=== PATIENT | female | born 1965 | race Caucasian/White ===

== ENCOUNTER → 2018-11-26 | Outpatient (CLI) | payer MEDICARE ==
[2018-11-26 13:26] LABS: HCT 40.9 % (34.0-46.0); HGB 13.5 gm/dL (11.4-16.0); MCH 30.9 pg (25.0-35.0); MCHC 33.1 g/dL (31.0-37.0); MCV 93.4 fL (80.0-100.0); Mean Platelet Volume 6.8; Platelet Count 301 k/uL (150-450); RBC 4.38 m/uL (3.80-5.40); RDW 12.7 % (11.5-15.5); WBC 9.7 k/uL (3.8-10.6)
[2018-11-26 13:37] LABS: Potassium 4.2 mmol/L (3.5-5.1)
== END ==
LOC: LABWHC1 12:51
PROVIDERS: ATTEND Internal Medicine Interventional Cardiology
DX: Z01.812 Encounter for preprocedural laboratory examination (principal); I34.0 Nonrheumatic mitral (valve) insufficiency
CPT/HCPCS: 36415; 80051; 82565; 84520; 85027

== ENCOUNTER → 2018-12-06 | Day surgery (SDC) | payer MEDICARE ==
[2018-12-04 10:54] VITALS: BMI 23.6
[~2018-12-06] MED LIST: ALPRAZolam 0.25 MG TAB PO PRN; ALPRAZolam 0.5 MG TAB PO PRN; ATORVASTATIN 80 MG TAB PO STA; BENZOCAINE SPRAY 1 CAN MUCOUS MEM ONE; HEPARIN SODIUM 1,000 UN/ML (10ML VL) ONE; HYDROmorphone 1 MG/ML 1 ML SYRINGE ONE; LIDOCAINE 1% INJ 10MG/ML (20 ML MDV) ONE; LIDOCAINE 1% INJ 10MG/ML (20 ML MDV) SQ ONE; MORPHINE SULFATE (PF) 1 MG/ML AMP IV ONE; NITROGLYCERIN 1000MCG/10ML SYRINGE INTRACORON ONE; NITROGLYCERIN SL TABS 0.4 MG TAB SUBLINGUAL PRN; RX INFO: IV CONTRAST WAS GIVEN 1 EACH MISC MISCELLANE PRN; SODIUM CHLORIDE 0.9% 1,000 ML IV SCH; SODIUM CHLORIDE 0.9% 1,000 ML in EMPTY BAG 1 BAG IV ONE; VERAPAMIL 2.5 MG/ML 2 ML AMP ONE; fentaNYL (PF) 50 MCG/ML 2 ML AMP ONE
[2018-12-06 09:44] VITALS: TEMP 97.9
[2018-12-06] MEDS: MIDAZOLAM (PF) 2 MG/2 ML VIAL IV ONE ×2 (11:08→11:36)
[2018-12-06] MEDS: fentaNYL (PF) 50 MCG/ML 2 ML AMP IV ONE ×2 (11:08→11:09)
[2018-12-06] MEDS: VERAPAMIL SYRINGE (5 MG/10 ML) INTRAARTER ONE ×2 (11:45→12:03)
--- NOTE | 2018-12-06 12:46 | ECHOT ---
TRANSESOPHAGEAL ECHOCARDIOGRAM DATE OF SERVICE: December 06, 2018 PERFORMING PHYSICIAN: Orlando Doe MD, power builder developer. PROCEDURE PERFORMED: Transesophageal echocardiogram. INDICATION: Mitral regurgitation. COMPLICATION: None. LEVEL OF SEDATION: Moderate with sedation length of 10 minutes. PROCEDURE DESCRIPTION: After obtaining an informed consent, explaining the procedure, benefits, risks, complications and alternatives, the patient was brought to the transesophageal echocardiogram suite. A pulse oximetry and heart rate monitors were attached to the patient prior to the procedure. The patient's throat was sprayed using lidocaine locally. Following that, the patient was turned into left lateral position. A bite guard was placed and the patient was then sedated with the above doses of Versed and fentanyl in divided doses. Following that, the transesophageal echocardiogram probe was advanced through the bite guard into the mid esophagus where 2-D echocardiogram images as well as color Doppler images of various cardiac structures were obtained. We evaluated the interatrial septum using 2-D echocardiogram, color Doppler, and contrast study. The procedure was completed. There were no complications. FINDINGS: The left ventricular dimension and systolic function appeared to be within normal limits. The ejection fraction appeared to be in the range of 55% to 60%. The right ventricle appeared to be of normal size and function. The left atrium appeared to be mildly dilated. The left atrial appendage appeared to be free from any thrombus. The aortic valve appeared to be trileaflet valve without stenosis with mild regurgitation. The mitral valve seems to be thickened with moderate MR. There was normal tricuspid valve and pulmonic valve. The interatrial septum appeared to be intact without any evidence of shunt. CONCLUSION: 1. Normal left ventricular dimension and systolic function. 2. Normal right ventricular dimension and systolic function. 3. Mild biatrial enlargement. 4. Normal left atrial appendage. 5. Intact interatrial septum. 6. Trileaflet aortic valve without stenosis with trace insufficiency. 7. Thickened mitral valve leaflets with moderate mitral regurgitation. 8. Normal tricuspid valve and pulmonic valve. 9. Normal aortic root dimension. 10.No evidence of pericardial effusion. MMODL / IJN: [id number] /
--- NOTE | 2018-12-06 13:51 | CC ---
CARDIAC CATHETERIZATION REPORT DATE OF SERVICE: 12/06/2018 PERFORMING PHYSICIAN: Orlando Doe MD, white sugar pan tank operator. PROCEDURE PERFORMED: 1. Selective right and left coronary angiogram. 2. Left heart catheterization. INDICATION: This is a 53-year-old female patient with history of asthma who continues to have chest discomfort sometimes exertional and sometimes not. She underwent a stress test in March of 2018 and that came in to be unremarkable for ischemia. Because she continues to have chest discomfort, I advised proceeding with coronary angiogram. APPROACH: Right radial artery. COMPLICATION: None. LEVEL OF SEDATION: Moderate with sedation length of 27 minutes. PROCEDURE DESCRIPTION: After obtaining an informed consent, the patient was brought to the cardiac laborer laboratory. The right radial artery was cannulated using micropuncture technique. Then I placed a 5- Setswana sheath in the right radial artery. After that I did give the patient 2 mg of verapamil IA and 6,000 units of heparin IV. Selective right and left coronary angiogram performed using JR3.5 and JL3 catheters. Left heart catheterization was performed using the JR3.5, which crossed the aortic valve then I did pullback across aortic valve after the catheter was flushed. The procedure was completed without any complication. SELECTIVE CORONARY ANGIOGRAM: 1. The right coronary artery has mild disease in the midportion appeared to be in the range of 20%. Distally bifurcates into PDA and PLV branches, both appeared to be angiographically normal. 2. The left main is angiographically normal. It bifurcates into left circumflex and left anterior descending artery. 3. Left circumflex is a large caliber vessel. It is a nondominant vessel. The proximal circumflex is angiographically normal and gives rise into a large OM branch which bifurcates distally into 2 branches both appear to be angiographically normal. The circumflex continued after that as a moderate caliber vessel in the AV groove. 4. The LAD: The proximal LAD appeared to be angiographically normal. It gives rise into the first diagonal branch which seems to be angiographically normal. The mid LAD just after the bifurcation of second diagonal branch has a lesion appeared to be in the range of 60% to 70%. The LAD distally appeared to be angiographically normal. HEMODYNAMICS: The left ventricular end-diastolic pressure was about 12 mmHg without significant gradient across the aortic valve. CONCLUSION: 1. Mild disease involving the right coronary artery. 2. Intermediate to severe disease involving the mid LAD with a lesion appeared to be in the range of 60% to 70%. POSTPROCEDURE MANAGEMENT: 1. Giving the above anatomy, I did recommend maximized medical treatment at this point of time. 2. I am going to start the patient on oral nitrate. 3. Obtain a stress test as an outpatient to assess for ischemia in the LAD territory. 4. Follow up with the patient. KANE / ARIN: [id number] /
--- NOTE | 2018-12-06 15:27 | LTR ---
December 06, 2018 To: Dr. Hogan Re: Courtney Preciado (69) Dear Dr. Hogan, Ms. Courtney Preciado underwent today a heart catheterization that revealed intermediate to severe disease involving the mid LAD. Given the absence of any critical disease, I did recommend maximized medical treatment and starting the patient on oral nitrates. I want to thank you for allowing us to participate in her care, and please do not hesitate to call if you have any question or concern. Sincerely, Orlando Doe M.D. KANE / MONA: [id number] /
[2018-12-06 17:07] VITALS: RESP 16
[2018-12-06 17:08] VITALS: BP 100/57; PULSE 66
== END | disposition home or self-care (01) ==
LOC: CATHCVL 09:20
PROVIDERS: ATTEND Internal Medicine Interventional Cardiology
DX: I34.0 Nonrheumatic mitral (valve) insufficiency (principal); I25.110 Atherosclerotic heart disease of native coronary artery with unstable angina pectoris; E78.5 Hyperlipidemia, unspecified; J45.909 Unspecified asthma, uncomplicated; Z79.899 Other long term (current) drug therapy; Z88.5 Allergy status to narcotic agent; Z88.2 Allergy status to sulfonamides; Z82.49 Family history of ischemic heart disease and other diseases of the circulatory system
CPT/HCPCS: 93312; 93320; 93325; 93458; 81025; C1887; C1769; C1894; J2001; J3010; J2274; J1644; J2250

== ENCOUNTER → 2019-01-03 | Outpatient (CLI) | payer MEDICARE ==
[2019-01-03 14:07] LABS: HCT 36.2 % (34.0-46.0); HGB 12.2 gm/dL (11.4-16.0); MCH 31.6 pg (25.0-35.0); MCHC 33.7 g/dL (31.0-37.0); MCV 93.7 fL (80.0-100.0); Mean Platelet Volume 6.9; Platelet Count 244 k/uL (150-450); RBC 3.86 m/uL (3.80-5.40); RDW 12.9 % (11.5-15.5); WBC 7.1 k/uL (3.8-10.6)
[2019-01-03 14:35] LABS: African American GFR (CKD) >90 (>60 ml/min/1.73 sqM); Anion Gap 6 mmol/L; Blood Urea Nitrogen 16 mg/dL (7-17); Carbon Dioxide 33 mmol/L (22-30); Chloride 102 mmol/L (98-107); Potassium 4.3 mmol/L (3.5-5.1); Sodium 141 mmol/L (137-145)
== END | disposition home or self-care (01) ==
LOC: LABPAT 13:39
PROVIDERS: ATTEND Internal Medicine Interventional Cardiology
DX: Z01.812 Encounter for preprocedural laboratory examination (principal); I10 Essential (primary) hypertension; E78.1 Pure hyperglyceridemia
CPT/HCPCS: 80051; 82565; 84520; 85027

== ENCOUNTER 2019-01-17 08:11 | Day surgery (SDC) | payer MEDICARE ==
[~2019-01-17 08:11] MED LIST changes: +ASPIRIN 325 MG TAB PO STA; -BENZOCAINE SPRAY 1 CAN MUCOUS MEM ONE; -HEPARIN SODIUM 1,000 UN/ML (10ML VL) ONE; -HYDROmorphone 1 MG/ML 1 ML SYRINGE ONE; -LIDOCAINE 1% INJ 10MG/ML (20 ML MDV) ONE; -LIDOCAINE 1% INJ 10MG/ML (20 ML MDV) SQ ONE; -MORPHINE SULFATE (PF) 1 MG/ML AMP IV ONE; -NITROGLYCERIN 1000MCG/10ML SYRINGE INTRACORON ONE; -NITROGLYCERIN SL TABS 0.4 MG TAB SUBLINGUAL PRN; -RX INFO: IV CONTRAST WAS GIVEN 1 EACH MISC MISCELLANE PRN; -SODIUM CHLORIDE 0.9% 1,000 ML IV SCH; -VERAPAMIL 2.5 MG/ML 2 ML AMP ONE; -fentaNYL (PF) 50 MCG/ML 2 ML AMP ONE
[2019-01-17 08:43] LABS: Basophils % (A) 0 %; Eosinophils # (A) 0.1 k/uL (0-0.7); Eosinophils % (A) 1 %; HCT 39.3 % (34.0-46.0); HGB 12.6 gm/dL (11.4-16.0); Lymphocytes # (A) 2.2 k/uL (1.0-4.8); Lymphocytes % (A) 25 %; MCH 29.8 pg (25.0-35.0); MCHC 31.9 g/dL (31.0-37.0); MCV 93.2 fL (80.0-100.0); Mean Platelet Volume 6.7; Monocytes # (A) 0.4 k/uL (0-1.0); Monocytes % (A) 5 %; Neutrophils # (A) 6.1 k/uL (1.3-7.7); Neutrophils % (A) 68 %; Platelet Count 280 k/uL (150-450); RBC 4.22 m/uL (3.80-5.40); WBC 8.9 k/uL (3.8-10.6)
[2019-01-17 08:54] LABS: African American GFR (CKD) >90 (>60 ml/min/1.73 sqM); Anion Gap 9 mmol/L; Blood Urea Nitrogen 21 mg/dL (7-17); Calcium 9.2 mg/dL (8.4-10.2); Carbon Dioxide 27 mmol/L (22-30); Chloride 104 mmol/L (98-107); Glucose 92 mg/dL (74-99); Potassium 3.8 mmol/L (3.5-5.1); Sodium 140 mmol/L (137-145)
[2019-01-17] MEDS: MIDAZOLAM (PF) 2 MG/2 ML VIAL IVP ONE ×2 (09:42→09:44)
[2019-01-17] MEDS ORDERED: LIDOCAINE 1% INJ 10MG/ML (20 ML MDV) SQ ONE (09:45)
[2019-01-17] MEDS: HYDROmorphone 1 MG/ML 1 ML SYRINGE IVP ONE ×2 (09:47→09:50)
[2019-01-17] MEDS: VERAPAMIL SYRINGE (5 MG/10 ML) INTRAARTER ONE ×2 (09:47→10:14)
[2019-01-17] MEDS ORDERED: BIVALIRUDIN BOLUS 250 MG/50 ML IV ONE (09:49)
[2019-01-17] MEDS ORDERED: BIVALIRUDIN 250 MG in SODIUM CHLORIDE 0.9% 50 ML IV ONE (09:50)
[2019-01-17] MEDS ORDERED: fentaNYL (PF) 50 MCG/ML 2 ML AMP IVP ONE (09:53)
[2019-01-17] MEDS ORDERED: MIDAZOLAM (PF) 2 MG/2 ML VIAL IVP ONE (09:55)
[2019-01-17] MEDS: NITROGLYCERIN 1000MCG/10ML SYRINGE INTRACORON ONE ×3 (09:59→10:11)
[2019-01-17] MEDS ORDERED: IOPAMIDOL-370 100ML BTL INJ ONE (10:09)
[2019-01-17] MEDS ORDERED: PRASUGREL 10 MG TAB PO ONE (10:16)
[2019-01-17] MEDS ORDERED: IOPAMIDOL-370 50ML BTL INJ ONE (10:16)
[2019-01-17] MEDS ORDERED: NON-FORMULARY DRUG (Dextroamphetamine/Amphetamine [Adderall] 20 MG) PO PRN (10:22)
[2019-01-17] MEDS ORDERED: ETODOLAC 300 MG CAPSULE PO PRN (10:22)
[2019-01-17] MEDS ORDERED: MAG HYDROX/AL HYDROX/SIMETH 30 ML CUP PO PRN (10:23)
[2019-01-17] MEDS ORDERED: ZOLPIDEM 5 MG TAB PO PRN (10:23)
[2019-01-17] MEDS ORDERED: RX INFO: IV CONTRAST WAS GIVEN 1 EACH MISC MISCELLANE PRN (10:23)
[2019-01-17] MEDS ORDERED: ATROPINE SULFATE 0.1 MG/ML 10ML SYRINGE IV PRN (10:23)
[2019-01-17] MEDS ORDERED: NITROGLYCERIN SL TABS 0.4 MG TAB SUBLINGUAL PRN (10:23)
[2019-01-17] MEDS ORDERED: SODIUM CHLORIDE 0.9% 1,000 ML IV SCH (10:30)
[2019-01-17 11:24] VITALS: BMI 23.5
--- NOTE | 2019-01-17 15:09 | PTCA ---
PERCUTANEOUSTRANS CORORONARY ANGIOGRAPHY DATE OF SERVICE: 01/17/2019 PERFORMING PHYSICIAN: Orlando Doe MD PROCEDURE PERFORMED: Successful stenting of the mid left anterior descending artery using 2.75 x 15 mm Xience drug-eluting stent with excellent angiographic results and reduction of stenosis from 80% to 0%. INDICATION: This is a very pleasant 53-year-old female patient who was experiencing symptoms of chest discomfort concerning for angina. She underwent a heart catheterization recently and that revealed severe disease involving the mid LAD. She was brought today to undergo PCI of the LAD. COMPLICATIONS: None. LEVEL OF SEDATION: Moderate, with sedation length of 31 minutes. PROCEDURE DESCRIPTION: After obtaining informed consent, the patient was brought to the cardiac medical lab scientist. The right radial artery was cannulated using micropuncture technique. The micropuncture wire passed easily. Then I placed a 6-Zambian sheath. At that point anticoagulation was initiated using Angiomax. I did engage the left main using JL3 guide. A run-through wire was used to wire the LAD. After that I did balloon angioplasty using 2.5 x 12 mm balloon which was inflated under 10 atmospheres for 20 seconds before I deployed a 2.75 x 15 mm Xience BRITTA where the stent was positioned under fluoroscopic guidance and deployed under 12 atmospheres for 20 seconds with the following angiogram showing good angiographic results. The procedure was completed without any complication. POST-PROCEDURE MANAGEMENT: 1. Dual anti-platelet therapy. 2. Risk factor modifications. 3. Follow up with the patient. thania MIDDLETON / ARIN: [id number] /
--- NOTE | 2019-01-17 15:39 | LTR ---
January 17, 2019 To: Dr. Hogan Re: Courtney Preciado (69) Dear Dr. Hogan, Ms. Courtney Preciado underwent today successful balloon angioplasty and stenting of the left anterior descending artery with an excellent angiographic result and without any complication. I want to thank you for allowing us to participate in her care and please do not hesitate to call if you have any question or concerns. Sincerely, Orlando Doe MD MMKIARRAL / ARIN: [id number] /
[2019-01-17] MEDS: HYDROcodone/APAP 7.5-325MG 1 EACH TAB PO PRN (22:53)
[2019-01-18 07:15] LABS: Basophils # (A) 0.1 k/uL (0-0.2); Basophils % (A) 1 %; Eosinophils # (A) 0.1 k/uL (0-0.7); Eosinophils % (A) 1 %; HCT 35.6 % (34.0-46.0); Lymphocytes # (A) 2.4 k/uL (1.0-4.8); Lymphocytes % (A) 33 %; MCH 31.1 pg (25.0-35.0); MCHC 33.6 g/dL (31.0-37.0); MCV 92.4 fL (80.0-100.0); Monocytes # (A) 0.4 k/uL (0-1.0); Monocytes % (A) 5 %; Neutrophils # (A) 4.3 k/uL (1.3-7.7); Neutrophils % (A) 59 %; Platelet Count 273 k/uL (150-450); RBC 3.85 m/uL (3.80-5.40); RDW 13.6 % (11.5-15.5); WBC 7.3 k/uL (3.8-10.6)
[2019-01-18 07:32] LABS: African American GFR (CKD) >90 (>60 ml/min/1.73 sqM); Anion Gap 7 mmol/L; Blood Urea Nitrogen 18 mg/dL (7-17); Calcium 8.8 mg/dL (8.4-10.2); Carbon Dioxide 25 mmol/L (22-30); Chloride 108 mmol/L (98-107); Glucose 90 mg/dL (74-99); Potassium 4.3 mmol/L (3.5-5.1); Sodium 140 mmol/L (137-145)
[2019-01-18 07:59] VITALS: BP 106/53; PULSE 74; RESP 16; TEMP 98.3
[2019-01-18] MEDS ORDERED: FLUTICASONE 50MCG/SPRAY NASAL 16GM EA NOSTRIL SCH (09:00)
[2019-01-18] MEDS ORDERED: MONTELUKAST 10 MG TAB PO SCH (09:00)
[2019-01-18] MEDS ORDERED: PRASUGREL 10 MG TAB PO SCH (09:00)
[2019-01-18] MEDS ORDERED: ASPIRIN 325 MG TAB PO SCH (09:00)
[2019-01-18] MEDS ORDERED: LORATADINE-PSEUDOEPH 5-120 MG 1 EACH TAB.ER.12H PO SCH (09:00)
--- NOTE | 2019-01-18 09:13 | DS ---
DISCHARGE SUMMARY ADMISSION DATE: January 17, 2019. DISCHARGE DATE: January 18, 2019 BRIEF HISTORY: This is a pleasant 53-year-old female patient with no risk factors for CAD with no history of diabetes or hypertension or dyslipidemia who continues to have chest discomfort. She underwent heart catheterization a few weeks ago and that revealed severe disease involving the mid LAD. She was brought yesterday and underwent successful stenting of the mid LAD with an excellent angiographic results and reduction of stenosis from 80% to 0% from a procedure was performed from the right radial artery. On followup with her today, she is asymptomatic. She is going to be discharged home on dual anti-platelet therapy along with high intensity statin and I will follow up with the patient next week in the office. MMODL / IJN: [id number] /
[2019-01-18] MEDS: HYDROcodone/APAP 7.5-325MG 1 EACH TAB PO PRN (09:17)
[2019-01-18] MEDS ORDERED: ATORVASTATIN 80 MG TAB PO SCH (21:00)
== END 2019-01-18 10:11 | disposition home or self-care (01) ==
LOC: CATHCVL 08:11 → 3SCARD 11:14 → CATHCVL 01-18 10:11
PROVIDERS: ATTEND Internal Medicine Interventional Cardiology
DX: I25.10 Atherosclerotic heart disease of native coronary artery without angina pectoris (principal); E11.9 Type 2 diabetes mellitus without complications; I10 Essential (primary) hypertension; E78.5 Hyperlipidemia, unspecified; Z82.49 Family history of ischemic heart disease and other diseases of the circulatory system; Z79.891 Long term (current) use of opiate analgesic; Z79.51 Long term (current) use of inhaled steroids; Z79.899 Other long term (current) drug therapy; Z88.2 Allergy status to sulfonamides; Z88.8 Allergy status to other drugs, medicaments and biological substances
CPT/HCPCS: 80048 ×2; 85025 ×2; 81025; C9600; C1887; C1725; C1769; C1894; C1874; J2001; J3010; J1170; J0583; Q9967 ×2; J2250

== ENCOUNTER → 2019-05-19 | Outpatient (CLI) | payer MEDICARE ==
--- NOTE | 2019-05-23 11:59 | MM ---
Reason for exam: screening (asymptomatic). History: Family history of breast cancer in maternal aunt at age 50. Took hormonal contraceptives for 20 years. Physical Findings: A clinical breast exam by your physician is recommended on an annual basis and results should be correlated with mammographic findings. MG 3D Screening Mammo W/Cad Bilateral CC and MLO view(s) were taken. The breast tissue is heterogeneously dense. This may lower the sensitivity of mammography. There is no discrete abnormality. ASSESSMENT: Negative, BI-RAD 1 RECOMMENDATION: Routine screening mammogram of both breasts in 1 year.
== END | disposition home or self-care (01) ==
LOC: RADMAMWWP 16:25
PROVIDERS: ATTEND Family Medicine
DX: Z12.31 Encounter for screening mammogram for malignant neoplasm of breast (principal)
CPT/HCPCS: 77063; 77067

== ENCOUNTER → 2019-08-13 | Outpatient (CLI) | payer MEDICARE ==
[2019-08-13 16:24] LABS: Chol/HDL Ratio 3.01
== END | disposition home or self-care (01) ==
LOC: LABWHC1 10:17
PROVIDERS: ATTEND Internal Medicine Interventional Cardiology
DX: E78.2 Mixed hyperlipidemia (principal)
CPT/HCPCS: 36415; 80061; 84450; 84460

== ENCOUNTER → 2021-03-17 | Outpatient (CLI) | payer MEDICARE ==
--- NOTE | 2021-03-17 16:27 | US ---
EXAMINATION TYPE: US thyroid st tissue head/neck DATE OF EXAM: 03/17/2021 COMPARISON: NONE CLINICAL HISTORY: 56-year-old female R07.0 Throat pain. TECHNIQUE: Multiple sonographic images of the thyroid gland are obtained. FINDINGS: GLAND SIZE: Right Lobe: 3.4 x 1.4 x 1.2 cm Overall Parenchyma: homogenous Left Lobe: 3.0 x 1.1 x 1.0 cm Overall Parenchyma: homogeneous Isthmus Thickness: 0.2 cm NODULES RIGHT: # of nodules measured on right: 1 Tiny 2 mm hypoechoic nodule near the thyroid isthmus. LEFT: # of nodules measured on left: 0 ISTHMUS: # of nodules measured in the isthmus: 0 Finance Advisor notes: Bilateral neck scanned, with focused scanning along the right anterior neck per or xiomara, no evidence of lymphadenopathy. IMPRESSION: Solitary tiny 2 mm nodule in the right lobe. No discrete abnormality otherwise seen particularly morgan g the right anterior neck at the site of patient's pain.
== END | disposition home or self-care (01) ==
LOC: RADUSWWP 13:41
PROVIDERS: ATTEND Family Medicine
DX: R91.1 Solitary pulmonary nodule (principal); R07.0 Pain in throat
CPT/HCPCS: 76536

== ENCOUNTER → 2022-08-18 | Outpatient (CLI) | payer MEDICARE ==
--- NOTE | 2022-08-18 08:02 | CT ---
EXAMINATION TYPE: CT brain w con CT DLP: 1066.7 mGycm, Automated exposure control for dose reduction was used. DATE OF EXAM: 08/18/2022 7:53 AM COMPARISON: None. CLINICAL INDICATION:Female, 57 years old with history of H57.02 ANISOCORIA; PHH, Anisocoria. TECHNIQUE: Axial CT images of the brain were obtained after the uneventful demonstration of 100 cc of Isovue-[address] or more CT dose reduction strategies were utilized during this examina tion. FINDINGS: Extra-axial spaces: No abnormal extra-axial fluid collections. Ventricular system: Within normal limits Cerebral parenchyma: No acute intraparenchymal hemorrhage or mass effect. The escalona-white junction is well differentiated. No abnormal enhancement is seen after the administration of intravenous contras t. Cerebellum: Unremarkable. Mass effect: No evidence of midline shift. Intracranial vasculature: unremarkable Soft tissues: Normal. Calvarium/osseous structures: No depressed skull fracture. Paranasal sinuses and mastoid air cells: Clear. Visualized orbits: Orbital contents are symmetric and intact. The retrobulbar fat is unremarkable. IMPRESSION: No acute intracranial process and no evidence to suggest intracranial mass.
== END | disposition home or self-care (01) ==
LOC: RADCTMAIN 07:25
PROVIDERS: ATTEND Family Medicine
DX: H57.02 Anisocoria (principal)
CPT/HCPCS: 70460; Q9967

== ENCOUNTER → 2022-10-30 | Outpatient (CLI) | payer MEDICARE ==
--- NOTE | 2022-10-31 20:09 | MM ---
Reason for Exam: Screening (asymptomatic). Last mammogram was performed 3 year(s) and 6 month(s) ago. Patient History: Menarche at age 16. First Full-Term at age 23. Patient used Hormonal Contraceptives for 20 years. Maternal aunt had breast cancer, age 50. Last menstrual period: Risk Values: Nikki 5 year model risk: 1.0%. NCI Lifetime model risk: 6.7%. Prior Study Comparison: 05/19/2019 Bilateral Screening Mammogram, [facility]. Tissue Density: The breast tissue is heterogeneously dense. This may lower the sensitivity of mammography. Findings: Analyzed By CAD. Chronic nodularity superior aspect of both breasts. There is no suspicious group of microcalcifications or new suspicious mass in either breast. Overall Assessment: Benign, BI-RAD 2 Management: Screening Mammogram of both breasts in 1 year. . Patient should continue monthly self-breast exams. A clinical breast exam by your physician is recommended on an annual basis. This exam should not preclude additional follow-up of suspicious palpable abnormalities. Note on Nikki scores and lifetime risk: 1. A Nikki score greater than 3% is considered moderate risk. If this is the case, consider specialist referral to assess eligibility for a risk reducing agent. 2. If overall lifetime risk for the development of breast cancer is 20% or higher, the patient may qualify for future screening with alternating mammogram and breast MRI. Electronically signed and approved by: Abbey Aguilar M.D. Radiologist
== END | disposition home or self-care (01) ==
LOC: RADMAMWWP 11:01
PROVIDERS: ATTEND Family Medicine
DX: Z12.31 Encounter for screening mammogram for malignant neoplasm of breast (principal); Z80.3 Family history of malignant neoplasm of breast
CPT/HCPCS: 77063; 77067

== ENCOUNTER → 2023-04-03 | Outpatient (CLI) | payer MEDICARE ==
[2023-04-03 19:01] LABS: Basophils # (A) 0.04 X 10*3/uL (0.00-0.10); Basophils % (A) 0.4 %; Eosinophils # (A) 0.12 X 10*3/uL (0.04-0.35); Eosinophils % (A) 1.2 %; HCT 40.7 % (37.2-46.3); HGB 13.2 d/dL (12.0-15.0); Lymphocytes # (A) 2.67 X 10*3/uL (0.90-5.00); Lymphocytes % (A) 25.6 %; MCH 31.4 pg (27.0-32.0); MCHC 32.4 d/dL (32.0-37.0); MCV 96.9 FL (80.0-97.0); Mean Platelet Volume 9.8 FL (9.5-12.2); Monocytes # (A) 0.63 X 10*3/uL (0.20-1.00); NRBC Per 100 WBC 0 X 10*3/uL (0.00-0.01); Neutrophils # (A) 6.94 X 10*3/uL (1.80-7.70); Neutrophils % (A) 66.6 %; Platelet Count 276 X 10*3/uL (140-440); RDW 12.4 % (11.5-14.5); WBC 10.42 X 10*3/uL (4.50-10.00)
[2023-04-04 01:12] LABS: Blood Urea Nitrogen 14.4 mg/dL (9.0-27.0); Carbon Dioxide 26.8 mmol/L (21.6-31.8); Chloride 101 mmol/L (96-109); Potassium 4.3 mmol/L (3.5-5.5); Sodium 138 mmol/L (135-145)
== END | disposition home or self-care (01) ==
LOC: LABPAT 13:53
PROVIDERS: ATTEND Internal Medicine Interventional Cardiology
DX: Z01.812 Encounter for preprocedural laboratory examination (principal); R07.9 Chest pain, unspecified; R06.02 Shortness of breath
CPT/HCPCS: 80051; 82565; 84520; 85025

== ENCOUNTER 2023-04-06 06:09 | Day surgery (SDC) | payer MEDICARE ==
[2023-04-04 15:16] VITALS: BMI 21.9
[~2023-04-06 06:09] MED LIST changes: -ASPIRIN 325 MG TAB PO STA; -ATORVASTATIN 80 MG TAB PO STA; +NITROGLYCERIN SL TABS 0.4 MG TAB SUBLINGUAL PRN; -SODIUM CHLORIDE 0.9% 1,000 ML in EMPTY BAG 1 BAG IV ONE; +SODIUM CHLORIDE 0.9% 1,000 ML in EMPTY BAG 1 BAG IV SCH
[2023-04-06] MEDS ORDERED: SODIUM CHLORIDE 0.9% 1,000 ML IV ONE (06:20)
[2023-04-06 07:11] VITALS: RESP 16; TEMP 97.5
[2023-04-06] MEDS ORDERED: VERAPAMIL 2.5 MG/ML 2 ML AMP ONE (07:14)
[2023-04-06] MEDS ORDERED: LIDOCAINE 1% INJ 10MG/ML (20 ML MDV) ONE (07:14)
[2023-04-06] MEDS ORDERED: MIDAZOLAM 2 MG/2 ML VIAL IVP ONE ×2 (07:44→07:52)
[2023-04-06] MEDS ORDERED: LIDOCAINE 1% INJ 10MG/ML (20 ML MDV) SQ ONE (07:45)
[2023-04-06] MEDS ORDERED: HEPARIN SODIUM 1,000 UN/ML (10ML VL) ONE (07:47)
[2023-04-06] MEDS ORDERED: VERAPAMIL SYRINGE (5 MG/10 ML) INTRAARTER ONE (07:48)
[2023-04-06] MEDS ORDERED: HEPARIN SODIUM 1,000 UN/ML (10ML VL) IVP ONE (07:48)
[2023-04-06] MEDS ORDERED: NITROGLYCERIN SL TABS 0.4 MG TAB SUBLINGUAL ONE ×2 (07:50→07:52)
[2023-04-06] MEDS ORDERED: RX INFO: IV CONTRAST WAS GIVEN 1 EACH MISC MISCELLANE PRN (08:00)
[2023-04-06] MEDS ORDERED: SODIUM CHLORIDE 0.9% 1,000 ML IV SCH (08:00)
[2023-04-06] MEDS ORDERED: IOPAMIDOL-370 200ML BTL INJ ONE (08:01)
--- NOTE | 2023-04-06 08:04 | P.PCN ---
Date of Procedure: 04/06/23 Operative Findings: CARDIAC CATHETERIZATION PERFORMING PHYSICIAN: Orlando Doe MD, RPVI PROCEDURE PERFORMED: 1. Selective right and left coronary angiogram 2. Left heart catheterization 3. Ultrasound-guided access of the right radial artery INDICATION: Unstable angina COMPLICATION: None APPROACH: Right radial artery LEVEL OF SEDATION: Moderate with a sedation length of 14 minutes PROCEDURE DESCRIPTION: After obtaining an informed consent, the patient was brought to cardiac orthodontic lab technician. Local anesthesia was performed using lidocaine subcutaneously. The right radial artery was cannulated using Seldinger technique, the guidewire passed easily, following that we advanced a 5-Nepalese sheath dilator assembly, the wire and dilator were removed and sheath was flushed. Following that, 2 mg of verapamil along with 3000 unit heparin were given. Selective right and left coronary angiogram using a 6-Nepalese JR4 and JL 3.5 catheters. Following that we did left heart catheterization using the JR4 catheter The procedure was completed there was no complication. SELECTIVE CORONARY ANGIOGRAM: The right coronary artery: Large caliber vessel and codominant vessel appears to be angiographically normal Left main: Is angiographically normal The left circumflex: Large caliber vessel nondominant vessel appears to be angiographically normal and gives rises into an OM which appears to be normal The left anterior descending artery: The stent in the mid LAD is patent. The LAD gives rises into the first and second diagonal is both appeared to be angiographically normal HEMODYNAMICS: LVEDP was 18 mmHg was no gradient across aortic valve CONCLUSION: 1. Patent stent in the mid LAD 2. Elevated left-sided filling pressure POSTPROCEDURE MANAGEMENT: Medical treatment
[2023-04-06 11:41] VITALS: PULSE 68
[2023-04-06 12:06] VITALS: BP 113/63
== END 2023-04-06 12:01 | disposition home or self-care (01) ==
LOC: CATHCVL 06:09
PROVIDERS: ATTEND Internal Medicine Interventional Cardiology
DX: I25.10 Atherosclerotic heart disease of native coronary artery without angina pectoris (principal); E78.5 Hyperlipidemia, unspecified; Z82.49 Family history of ischemic heart disease and other diseases of the circulatory system; Z88.2 Allergy status to sulfonamides; Z79.899 Other long term (current) drug therapy; Z79.82 Long term (current) use of aspirin
CPT/HCPCS: 93458; C1769; C1894; C1887; J2250; J2001; J1644; Q9967

== ENCOUNTER → 2023-09-17 | Outpatient (CLI) | payer MEDICARE ==
--- NOTE | 2023-09-17 16:48 | US ---
EXAMINATION TYPE: US venous doppler duplex LE RT DATE OF EXAM: 09/17/2023 3:34 PM COMPARISON: NONE CLINICAL INDICATION: Female, 58 years old with history of M79.661 PAIN IN RIGHT LOWER LEG; right leg pain SIDE PERFORMED: Right TECHNIQUE: The lower extremity deep venous system is examined utilizing real time linear array sonog [place]ol[place] with graded compression, doppler sonography and color-flow sonography. VESSELS IMAGED: Common Femoral Vein Deep Femoral Vein Greater Saphenous Vein * Femoral Vein Popliteal Vein Small Saphenous Vein * Proximal Calf Veins (* superficial vessels) The deep venous system of the right lower extremity from the right common femoral vein to the proxima l calf veins is patent, compressible with augmentable flow in normal waveforms. IMPRESSION: No evidence of DVT from the right common femoral vein to the proximal calf veins.
== END | disposition home or self-care (01) ==
LOC: RADUSWWP 14:57
PROVIDERS: ATTEND Family Medicine
DX: M79.661 Pain in right lower leg (principal)